=== PATIENT | female | born 1990 | race Hispanic/Latino ===

== ENCOUNTER 2021-02-19 09:07 | Emergency (ER) | payer OTHER ==
--- OUTSIDE RECORDS SUMMARY | 2021-02-19 09:10 | XMS REPORT | Continuity of Care Document ---
:1990 Author Organization [facility] t Address [address] [place] [address] Care Team Providers Name Role Phone John Coffey DO Attending Clinician Lab, Fam Pob I Attending Clinician Unavailable Farzana RN Attending Clinician Unavailable Only, Test Attending Clinician Unavailable Doctor Unassigned, Name Attending Clinician Unavailable Karolyn Mccabe Attending Clinician Payers Payer Name Policy Type Policy Number Effective Date Expiration Date S ource Problems This patient has no known problems. Allergies, Adverse Reactions, Alerts Allergy Allergy Status Severity Reaction(s) Onset Inactive Treating Comm ents Source Name Type Date Date Clinician No Known DA Active [facility] [place] Medications This patient has no known medications. Procedures This patient has no known procedures. Encounters Start End Encounter Admission Attending Care Care Encounter Source Date/Time Date/Time Type Type Clinicians Facility Department ID 2021-02-02 2021-02-02 Patient SHANTE Coffey [id number] 00:00:00 00:00:00 Outreach [facility] [id number] John [facility] [id number] [facility] [id number] [id number] 2020-11-11 2020-11-11 Laboratory Lab, [facility] [id number] 18:06:52 18:26:52 Only Fam Pob [facility] [id number] [place] [id number] Professio [phone] nal [address] 2020-09-25 2020-09-25 Letter FarzanaDemi 1.2.840.114 [id number] 00:00:00 00:00:00 (Out) JERALD [id number] [facility] [id number] [id number] 2020-09-23 2020-09-23 Laboratory Only, [facility] 1.2.840.114 [id number] 14:23:27 14:38:27 Only Test [place] [id number] [place] [id number] [facility] [id number] [id number] 2020-09-23 2020-09-23 Orders Doctor SHARONDA [id number] 00:00:00 00:00:00 Only Unassigned, JERAL[place] [id number] [place] [id number] 2020-08-04 2020-08-04 Office [place], [facility] [id number] 13:13:21 14:10:06 Visit Kimi Parr [employer] [id number] [place] [id number] MATERNAL [phone] & CHILD [address] [place] [address] Results Test Description Test Time Test Comments Results Result [facility] e Comments - US BRST COMP W 2019-06-06 Patient Name: AX RT 16:43:00 CHRIS TROTTER Unit No: [id number] EXAMS: CPT CODE: [id number] [place] [id number] Right breast ultrasound June 06, 2019. COMPARISON: None. CLINICAL HISTORY: 28-year-old female with palpable right breast x3 months. Redness. Patient denies tenderness or fever. Requested to evaluate for abscess. Patient denies breast-feeding or Discussion: Real-time grayscale sonography was performed of the 4 quadrants, retroareolar and axillary of the right breast. Corresponding to the palpable area of concern in the right breast, 7-9 o'clock location, 1 cm from the nipple is an irregular hypoechoic mass measuring approximately 3.7 x 1.5 x 3.9 cm. Although findings may be related to mastitis, features are worrisome for underlying malignancy (or possible granulomatous mastitis). Heterogeneous breast tissue seen throughout. Fatty replaced lymph nodes are present in the axilla, the largest measures 2.4 x 1.1 cm and has a slightly eccentric cortex. Advise correlation with clinical breast exam and follow-up mammography in dedicated breast sonography. IMPRESSION: 1. Irregular hypoechoic mass in the right breast 7-9 o'clock location, 1 cm from the nipple are identified although findings may be related to mastitis in infection, underlying neoplasm is a concern. Correlation with Follow-up mammography and dedicated breast sonography is advised. Please note study is for evaluation of acute abscess and not intended as a screening for malignancy. Not all breast cancers are detected by mammography/sonograph y and a negative report should not delay biopsy if a dominant or clinically suspicious mass is present. FO R INTERNAL CODING PURPOSES ONLY RESULT CODE: NA FOLLOW UP: NAP at 1643 Reported and signed by: Prema Rea MD CC: Preet Jalloh MD Technologist: Radha Cabrales RDMS, RVT Probe: Trnscrbd D/ (1643) t.MERY.NMG Orig Print D/T: S: 06/06/2019 (1646) [facility]: CHRIS TROTTER Radiology Department PHYS: JULIA - Preet Jalloh MD [address] : 1990 AGE: 28 SEX: F [place], [place] [address] LOC: [facility] PHONE #: [phone] EXAM DATE: 06/06/2019 STATUS: REG ER FAX #: [phone] RAD NO: Page 1 Signed Report Patient Name: CHRIS TROTTER Unit No: [id number] EXAMS: CPT CODE: [id number] [place] [id number] <Continued> [facility] NAME: CHRIS TROTTER Radiology Department PHYS: Preet Amos MD [address] : 1990 AGE: 28 SEX: F [place], [place] [address] LOC: [place] PHONE #: [phone] EXAM DATE: 06/06/2019 STATUS: REG ER FAX #: [phone] RAD NO: Page 2 Signed Report CBC W/AUTO DIFF 2019-06-06 15:07:00 Test Item Value Reference Range Interpretation Comme nts WHITE BLOOD CELL (test code = WBC) 9.3 K/mm3 6.6-12.1 N RED BLOOD CELL (test code = RBC) 5.18 M/mm3 3.45-5.01 H HEMOGLOBIN (test code = HGB) 14.2 g/dL 10.7-13.9 H HEMATOCRIT (test code = HCT) 43.0 % 32.1-42.1 H MEAN CELL VOLUME (test code = MCV) 83 fL 84.1-94.8 L MEAN CELL HGB (test code = MCH) 27.4 pg 27-35 N MEAN CELL HGB CONCETRATION (test code = MCHC) 33.0 gm/dL 32.2-34. 1 N RED CELL DISTRIBUTION WIDTH (test code = RDW) 11.9 % 12.4-16. 5 L PLATELET COUNT (test code = PLT) 267 K/mm3 133-385 N IMMATURE PLATELET FRACTION (test code = IPF) 0.0 % 0.0-10.8 N MEAN PLATELET VOLUME (test code = MPV) 11.5 fl 9.1-12.7 N NEUTROPHIL % (test code = NT%) 78.0 % 56.5-79.4 N LYMPHOCYTE % (test code = LY%) 15.2 % 14.3-34.3 N MONOCYTE % (test code = MO%) 5.3 % 5.1-10.4 N EOSINOPHIL % (test code = EO%) 0.9 % 0.1-3.0 N BASOPHIL % (test code = BA%) 0.3 % 0.1-1.0 N NEUTROPHIL # (test code = NT#) 7.3 K/mm3 LYMPHOCYTE # (test code = LY#) 1.4 K/mm3 MONOCYTE # (test code = MO#) 0.5 K/mm3 EOSINOPHIL # (test code = EO#) 0.08 K/mm3 BASOPHIL # (test code = BA#) 0.0 K/mm3 RBC MORPHOLOGY REQUIRED (test code = RBCM) NORMAL NORMAL PLATELET MORPHOLOGY REQUIRED (test code = PLTMR) NORMAL MITCHELL L
[2021-02-19] MEDS ORDERED: HYDROCODONE/APAP 7.5/325 MG TAB ONE (09:51)
--- NOTE | 2021-02-19 11:14 | RAD REPORT ---
EXAM DESCRIPTION: US - Extremity Venous Uni Ltd - 02/19/2021 10:56 am CLINICAL HISTORY: PAINleft leg COMPARISON: None. TECHNIQUE: Real-time sonographic evaluation of the left lower extremity deep venous system was perfo rmed. FINDINGS: Normal compressibility, flow augmentation, phasic flow and spontaneous flow are identified in the left lower extremity common femoral, superficial femoral, popliteal and posterior tibial vein s. No intraluminal filling defects seen. IMPRESSION: No DVT in the left lower extremity.
--- NOTE | 2021-02-19 12:17 | EDPHYS ---
Physician Documentation [facility] Name: Janet Allan Age: 30 yrs Sex: Female : 1990 Arrival Date: 02/19/2021 Time: 09:10 Bed 18 Private MD: SULEMAN Physician Flo Godinez HPI: 02/19 09:29 This 30 yrs old Female presents to ER via Unassigned with complaints of Leg kb Pain. 09:29 The patient presents with pain, that is acute. The complaints affect the posterior kb aspect of left knee and left calf. Context: The problem was sustained at home, resulted from an unknown cause, the patient can partially bear weight, the patient is able to ambulate. Onset: The symptoms/episode began/occurred 2 day(s) ago, and became worse this morning. Modifying factors: The symptoms are alleviated by remaining still, the symptoms are aggravated by weight bearing, bending knee. Associated signs and symptoms: Pertinent positives: calf tenderness, Pertinent negatives fever, nausea, numbness, rash, swelling, tingling, vomiting, warmth, weakness. Treatment prior to arrival includes: no previous treatment. Severity of symptoms: At their worst the symptoms were moderate, in the emergency department the symptoms are unchanged. The patient has not experienced similar symptoms in the past. The patient has not recently seen a physician. Pt reports pain behind left knee that began 2 days ago and has gotten worse this morning. Denies any injury. No previous injury. 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 - Social history:: Smoking status: Patient denies any tobacco usage or history of. Smoking status: . ROS: 09:27 Constitutional: Negative for fever, chills, and weight loss, Respiratory: Negative for kb shortness of breath, cough, wheezing, and pleuritic chest pain, Skin: Negative for injury, rash, and discoloration, Neuro: Negative for headache, weakness, numbness, tingling, and seizure. 09:27 MS/extremity: Positive for pain, tenderness, of the posterior aspect of left knee and left calf. Exam: 09:27 Constitutional: This is a well developed, well nourished patient who is awake, alert, kb and in no acute distress. Head/Face: Normocephalic, atraumatic. Skin: Warm, dry with normal turgor. Normal color. Neuro: Awake and alert, GCS 15, oriented to person, place, time, and situation. Moves all extremities. Normal gait. 09:27 Musculoskeletal/extremity: Extremities: grossly normal except: noted in the left calf and posterior aspect of left knee: pain, tenderness, ROM: limited active range of motion due to pain, in the left knee, Circulation is intact in all extremities. Sensation intact. Weight bearing: can bear weight with assistance only. Vital Signs: 09:35 BP 139 / 72; Pulse 71; Resp 15; Temp 97.1(TE); Pulse Ox 98% on R/A; Weight 92.99 kg; ss Height 5 ft. 1 in. (154.94 cm); Pain 8/10; 10:49 BP 140 / 74; Pulse 74; Resp 18; Pulse Ox 97% on R/A; bw 12:02 BP 124 / 79; Pulse 63; Resp 18; Pulse Ox 95% on R/A; bw 09:35 Body Mass Index 38.73 (92.99 kg, 154.94 cm) ss MDM: 09:20 Patient medically screened. kb 09:27 Data reviewed: vital signs, nurses notes. Data interpreted: Pulse oximetry: on room air kb is 100 %. Interpretation: normal. 12:16 Counseling: I had a detailed discussion with the patient and/or guardian regarding: the kb historical points, exam findings, and any diagnostic results supporting the discharge/admit diagnosis, radiology results, the need for outpatient follow up, a orthopedic surgeon, to return to the emergency department if symptoms worsen or persist or if there are any questions or concerns that arise at home. 04 09:23 Order name: US Extremity Venous Unilateral Ltd; Complete Time: 11:20 kb 04 11:27 Order name: Knee Left 3 View XRAY ll1 Administered Medications: 09:35 Drug: [place] (HYDROcodone-acetaminophen) (7.5 mg-325 mg) 1 tabs Route: PO; bw 12:36 Follow up: Response: No adverse reaction bw Disposition: 02/20 07:27 Co-signature as Attending Physician, Flo Godinez MD I agree with the assessment and garrick plan of care. Disposition: 02/19/21 12:17 Discharged to Home. Impression: Pain in left knee. - Condition is Stable. - Discharge Instructions: Knee Pain, Cwhv-xl-Hmvs. - Prescriptions for Diclofenac Sodium 75 mg Oral Tablet, Delayed Release (E.C.) - take 1 tablet by ORAL route 2 times per day As needed; 30 tablet. - Medication Reconciliation Form, Thank You Letter, Antibiotic Education, Prescription Opioid Use form. - Follow up: Emergency Department; When: As needed; Reason: Worsening of condition. Follow up: Private Physician; When: 2 - 3 days; Reason: Recheck today's complaints, Continuance of care, Re-evaluation by your physician. Signatures: Dispatcher [employer] EDPA Roselia Hubbard, CARTRIDGE LOADING OPERATOR-C CARTRIDGE LOADING OPERATOR-Flo Carranza MD MD cha Smirch, Shelby, RN RN Malissa Mcconnell RN RN Corrections: (The following items were deleted from the chart) 02/19 12:37 12:17 02/19/2021 12:17 Discharged to Home. Impression: Pain in left knee. Condition is bw Stable. Forms are Medication Reconciliation Form, Thank You Letter, Antibiotic Education, Prescription Opioid Use. Follow up: Emergency Department; When: As needed; Reason: Worsening of condition. Follow up: Private Physician; When: 2 - 3 days; Reason: Recheck today's complaints, Continuance of care, Re-evaluation by your physician. kb
--- NOTE | 2021-02-19 12:17 | ER ---
Nurse's Notes [facility] Name: Janet Allan Age: 30 yrs Sex: Female : 1990 Arrival Date: 02/19/2021 Time: 09:10 Bed 18 Private MD: Diagnosis: Pain in left knee Presentation: 02/19 09:35 Chief complaint: Patient states: pain behind L knee that began 3 days ago, worse last ss night. Coronavirus screen: Client denies travel out of the [place] in the last 14 days. Ebola Screen: Patient denies exposure to infectious person. Patient denies travel to an Ebola-affected area in the 21 days before illness onset. Initial Sepsis Screen: Does the patient meet any 2 criteria? No. Patient's initial sepsis screen is negative. Does the patient have a suspected source of infection? No. Patient's initial sepsis screen is negative. Risk Assessment: Do you want to hurt yourself or someone else? Patient reports no desire to harm self or others. Onset of symptoms was January 16, 2021. 09:35 Method Of Arrival: Ambulatory ss 09:35 Acuity: RICARDO 3 ss Triage Assessment: 12:35 General: Appears in no apparent distress. Behavior is calm, cooperative, appropriate bw for age. 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 - Social history:: Smoking status: Patient denies any tobacco usage or history of. Smoking status: . Screenin:37 Abuse screen: Denies threats or abuse. Nutritional screening: No deficits noted. bw Tuberculosis screening: No symptoms or risk factors identified. Fall Risk None identified. Assessment: 09:35 Pain: Complains of pain in left leg Pain does not radiate. Neuro: No deficits noted. bw Cardiovascular: No deficits noted. Respiratory: No deficits noted. GI: No deficits noted. : No deficits noted. EENT: No deficits noted. Derm: No deficits noted. Musculoskeletal: Reports pain in left leg. Injury Description: injury unknown per patient. 10:49 Reassessment: Patient appears in no apparent distress at this time. No changes from bw previously documented assessment. 12:02 Reassessment: Patient appears in no apparent distress at this time. No changes from bw previously documented assessment. Patient and/or family updated on plan of care and expected duration. Pain level reassessed. Patient is alert, oriented x 3, equal unlabored respirations, skin warm/dry/pink. Vital Signs: 09:35 BP 139 / 72; Pulse 71; Resp 15; Temp 97.1(TE); Pulse Ox 98% on R/A; Weight 92.99 kg; ss Height 5 ft. 1 in. (154.94 cm); Pain 8/10; 10:49 BP 140 / 74; Pulse 74; Resp 18; Pulse Ox 97% on R/A; bw 12:02 BP 124 / 79; Pulse 63; Resp 18; Pulse Ox 95% on R/A; bw 09:35 Body Mass Index 38.73 (92.99 kg, 154.94 cm) ED Course: 09:10 Patient arrived in ED. ds1 09:11 Roselia Hubbard FNP-C is [facility]. kb 09:11 Flo Godinez MD is Attending Physician. kb 09:31 Malissa Mcconnell, CHERISE is Primary Nurse. bw 09:36 Triage completed. ss 09:37 Arm band placed on right wrist. ss 09:37 Patient has correct armband on for positive identification. Call light in reach. Side bw rails up X 1. Pulse ox on. NIBP on. Warm blanket given. 09:37 No provider procedures requiring assistance completed. Patient did not have IV access bw during this emergency room visit. 10:56 US Extremity Venous Unilateral Ltd In Process Unspecified. EDMS 11:48 Knee Left 3 View XRAY In Process Unspecified. EDMS Administered Medications: 09:35 Drug: [place] (HYDROcodone-acetaminophen) (7.5 mg-325 mg) 1 tabs Route: PO; bw 12:36 Follow up: Response: No adverse reaction bw Outcome: 12:17 Discharge ordered by MD. kb 12:35 Discharged to home ambulatory. bw 12:35 Condition: stable 12:35 Discharge instructions given to patient, Instructed on discharge instructions, follow up and referral plans. medication usage, Prescriptions given X 1. 12:37 Patient left the ED. bw Signatures: Dispatcher [employer] EDRoselia Rao, KIMBERLY-C KIMBERLY-Zo Singer ds1 Ally Ricketts, RN RN Malissa Mcconnell RN RN
--- NOTE | 2021-02-19 13:24 | RAD REPORT ---
EXAM DESCRIPTION: RAD - Knee Left 3 View - 02/19/2021 11:49 am CLINICAL HISTORY: PAIN COMPARISON: No comparisons FINDINGS: No fracture, dislocation or periosteal reaction.No joint effusion seen. No joint space blayne rowing. No soft tissue abnormality. IMPRESSION: Negative left knee. Clinical concerns for internal derangement or occult bony injury could be further assessed with MR im aging.
[2021-02-19 18:32] VITALS: BP 140/74; O2SAT 97
[2021-02-19 18:34] VITALS: TEMP 97.1
== END 2021-02-19 12:37 | disposition home or self-care (01) ==
LOC: ER 09:07
DX: M25.562 Pain in left knee (principal)
CPT/HCPCS: 93971; 99284